=== PATIENT | male | born 1995 | race African-American/Black ===

== ENCOUNTER 2023-01-11 21:28 | Emergency (ER) | payer OTHER, SELFPAY ==
[2023-01-11 21:35] LABS: #Basophils 0.1 thou/uL (0.0-0.2); #Lymphocytes 3.5 thou/uL (1.20-3.40); #Monocytes 0.8 thou/uL (0.11-0.59); #Neutrophils 4.8 thou/uL (1.40-6.50); %Basophils 0.7 % (0.0-1.0); %Eosinophils 0.1 % (0.0-10.0); %Lymphocytes 37.8 % (21.0-51.0); %Monocytes 9.2 % (0.0-10.0); %Neutrophils 52.2 % (42.0-75.0); Hematocrit 48.8 % (42.0-52.0); Hemoglobin 15.4 g/dL (14.0-18.0); Mean Corpuscular HGB CONC 31.6 g/dL (32.0-36.0); Mean Corpuscular Volume 91.7 fl (78.0-98.0); Mean Platelet Volume 9.1 fL (7.4-10.4); Platelet Count 258 10x3/uL (130-400); RBC Distribution Width 13.4 % (11.5-14.5); Red Blood Cell (RBC) Count 5.32 mill/uL (4.70-6.10); White Blood Cell (WBC) Count 9.2 10x3/uL (4.8-10.8)
[2023-01-11 21:54] LABS: Prothrombin Time 13.7 sec (12.0-14.7)
[2023-01-11 21:55] LABS: PTT 29.3 sec (22.9-36.1)
[2023-01-11] MEDS ORDERED: Lidocaine 1% (PF) 30 ML VIAL ONE (21:56)
[2023-01-11] MEDS ORDERED: Boostrix 0.5 ML (Tdap) VIAL (>/=7 yrs of age) ONE (21:56)
[2023-01-11 21:57] LABS: ALT (SGPT) 34 U/L (8-55); AST (SGOT) 37 U/L (5-34); Albumin 4.6 g/dL (3.5-5.0); Alkaline Phosphatase 84 U/L (40-110); Anion Gap 18 mmol/L (10-20); BUN (Urea Nitrogen) 15 mg/dL (8.9-20.6); Bilirubin, Total 0.7 mg/dL (0.2-1.2); Calc. Creatinine Clearance 0 mL/min (70-130); Calcium 9.5 mg/dL (7.8-10.44); Carbon Dioxide 19 mmol/L (22-29); Chloride 105 mmol/L (98-107); Estimated GFR 45; Globulin 3.2 g/dL (2.4-3.5); Glucose 102 mg/dL (70-105); Potassium 3.4 mmol/L (3.5-5.1); Protein, Total 7.8 g/dL (6.0-8.3); Sodium 139 mmol/L (136-145)
[2023-01-11 21:58] LABS: D-Dimer Test Less than 0.27 *mcg/mL (0.27-0.43)
[2023-01-11] MEDS ORDERED: Bacitracin 1 PK ONE (22:13)
== END 2023-01-11 23:00 | disposition home or self-care (01) ==
LOC: NAV ERS 21:28
DX: S01.511A Laceration without foreign body of lip, initial encounter (principal); S60.414A Abrasion of right ring finger, initial encounter; F17.210 Nicotine dependence, cigarettes, uncomplicated; W26.8XXA Contact with other sharp object(s), not elsewhere classified, initial encounter; Y93.89 Activity, other specified; Y92.524 Gas station as the place of occurrence of the external cause; Z23 Encounter for immunization
CPT/HCPCS: 12011; 36415; 80053; 85025; 85379; 85610; 85730; 90471; 90715; J2001